=== PATIENT | female | born 1935 | race Caucasian/White ===

== ENCOUNTER 2020-09-02 15:40 | Outpatient (RCR) | payer MEDICARE, SELFPAY | END 2020-09-02 23:59 | LOC: IMMUN 15:40 | PROVIDERS: PCP Internal Medicine; Visit Provider Family Medicine | DX: Z23 Encounter for immunization (principal) | CPT/HCPCS: 0011A; 0012A; 91301 ==

== ENCOUNTER → 2023-04-30 | Outpatient (CLI) | payer MEDICARE, SELFPAY | END | disposition home or self-care (01) | LOC: LABSPEC 12:32 | PROVIDERS: PCP Internal Medicine; Referring Provider Physician Assistant; Visit Provider Physician Assistant | DX: L24.A9 Irritant contact dermatitis due friction or contact with other specified body fluids (principal) | CPT/HCPCS: 87070; 87205 ==

== ENCOUNTER 2023-05-17 08:39 | Outpatient (RCR) | payer MEDICARE, SELFPAY ==
[2023-05-17 09:14] VITALS: BP 171/85; PULSE 81; RESP 20; TEMP 36.2; BMI 24.7
--- NOTE | 2023-05-17 11:18 | PCM.WC.HP ---
History of Present Illness Date of Service: 05/17/23 Chief Complaint: Wound/skin abrasion posterior left lower extremity History of Wound: Patient is an 88-year-old female who presents to the wound care center today with complaint of nonhealing wound to the posterior superior aspect of her left lower extremity. She states she was sitting in a chair by the pang in March and shortly after noticed some redness on the back of the leg and over the next few days developed some leaking from the site. States she had been applying Neosporin however wound did feel to progress after 6 weeks. She did follow-up with PCP office on 04/30/2023 and was seen by PA who prescribed oral doxycycline 100 mg twice daily for 10 days and topical bacitracin ointment to apply daily. She states she did take the antibiotic but was out working in the sun and developed a rash secondary to photosensitivity. She states antibiotics have not improved her wound. She feels the area is continuing to worsen. She denies N/V/F/chills. Denies spreading redness. Denies new soaps and medications. Denies further complaints. [facility] Medical History (Updated 05/17/23 @ 11:[address] Yunior De Los Santos DPM) Hypertension Wound of left lower extremity Home Medications lisinopril 10 mg tablet 10 mg PO DAILY 04/30/23 [History Last Taken Unknown] Allergy/AdvReac Type Severity Reaction Status Date / Time sulfa Allergy Mild Rash Uncoded 04/30/23 10:23 Social History Smoking Status: Never smoker ROS Constitutional Constitutional: Denies anorexia, chills or fever(s) Eyes Eyes: Denies change in vision, double vision or eye pain ENT HEENT: Denies dysphagia, nasal discharge or sore throat Cardiovascular Cardiovascular: Denies chest pain, claudication or palpitations Respiratory/Chest Respiratory/Chest: Denies cough, shortness of breath at rest or wheezing Gastrointestinal Gastrointestinal: Denies abdominal pain, constipation, diarrhea, nausea or vomiting Genitourinary Genitourinary: Denies dysuria, hematuria or urinary urgency Musculoskeletal Musculoskeletal: Denies joint pain, joint stiffness or joint swelling Integumentary Integumentary: Denies lesions, pruritus or rash Neurologic Neurologic: Denies dizziness, numbness or seizures Endocrine Endocrinology: Denies cold intolerance or heat intolerance Hematologic/Lymphatic Hematologic/Lymphatic: Denies easy bleeding or easy bruising Vital Signs Vital Signs Vital Signs: 05/17/23 09:14 Temperature 97.2 F L Temperature Source Temporal Pulse Rate 81 Respiratory Rate 20 H Blood Pressure 171/85 H Blood Pressure Mean 113 Blood Pressure Source Monitor Weight Weight: 57.606 kg Body Mass Index (BMI) 24.7 Physical Exam Const alert, oriented x3 and no apparent distress General Appearance: cooperative HEENT normocephalic Eyes General Eye: normal appearance of both eyes Neck General: normal visual inspection Lymph Lymphatic: no lymphadenopathy noted and no lymphedema noted Resp normal respiratory effort Cardio regular rate and regular rhythm Extremity normal capillary refill, no joint enlargement, no calf tenderness and no pedal edema Extremity Narrative: DP and PT pulses palpable to bilateral lower extremity. Capillary fill time less than 4 seconds to all digits bilateral. Dermatological: There is a reddish purplish discolored plaque with some scaling to the posterior superior medial calf of the left lower extremity. No erythema, no purulent drainage, no serous drainage, no malodor, no palpable fluctuance/bogginess, no visible abscess formation, no lymphangitic streaking, no lymphadenopathy. Musculoskeletal: Muscle strength 5 of 5 and age-appropriate. Decreased range of motion of the ankle joint dorsiflexion with the knee extended without pain or crepitus. Decreased range of motion of the first metatarsophalangeal joint without pain or crepitus. No pain to palpation about the posterior superior calf skin lesion. Negative Raygoza sign, negative Homans' sign. Skin skin turgor normal and no jaundice Neuro oriented x3 and moves all extremities Debridement Note Debridement Note No debridement was completed: No debridement was completed today Post-Debridement Measurements and Additional Note: Post-Debridement Measurements/Treatment - Nurse 1 - General Ulcer Assessment Start: 05/17/23 09:13 Freq: Status: Active Protocol: DIXIE Activity Type Activity Date Activity User E-sign Co-sign Detail Recorded Client Recorded Date Recorded By Document 05/17/23 09:14 DL Desktop 05/17/23 09:30 DL 05/17/23 09:14 - Today's Visit Information Type of service Initial Visit Arrival Mode Ambulatory Transfer Assistance None Patient Identification Verified (Name & Yes ) Patient Requires Transmission-Based No Precautions Height and Weight Height 5 ft Weight 57.606 kg Weight in Pounds 127.0 lbs Body Mass Index (BMI) 24.7 BMI Classification Normal BSA - Franky 1.54 Vital Signs Temperature (97.8 F-99.1 F) 97.2 F L Temperature Source Temporal Pulse Rate (60-100) 81 Pulse Location Monitor Respiratory Rate (12-18) 20 H Respiratory rate source Observation Blood Pressure (90/60-120/80) 171/85 H Blood Pressure Mean 113 Source Monitor History Since Last Visit- (Skip if this is Patient's initial visit) Left Footwear Regular Shoe Right Footwear Regular Shoe Pain Scale: 0-10 Numeric Is Patient Pain Free? Yes Lower Extremity Assessment/ Foot Assessment/ Toe Nail Assessment Right -Posterior Tibial Palpable Yes -Posterior Tibial Doppler Multiphasic -Dorsalis Pedis Palpable Yes -Dorsalis Pedis Doppler Multiphasic -Extremity Color Normal -Hair Growth on Legs No -Hair Growth on Toes No -Temperature of Extremity Warm -Capillary Refill Less than 3 Seconds -Dependent Rubor No -Blanched when Elevated No -Lipodermatosclerosis No -Other Deformity No -Prior Foot Ulcer No -Charcot Joint No -Prior Amputation No -Thick No -Discolored No -Deformed No -Improper Length & Hygeine No Communication Assessment Preferred language [place] Able to Read Yes Able to Write Yes Right Hearing Abillity Normal Left Hearing Abillity Normal Visual Assistive Devices Glasses Teaching Assessment Preferences Verbal,Written, Demonstration Barriers to Learning None Readiness To Learn Good Willingness to Engage in Self Management Med Activies Readiness to Engage in Self Management Med Activities Anxiety Level Calm Cooperation Cooperative Perception Coherent Interest in Health Problem Asks Questions Education Importance Acknowledges Need Does Patient Smoke tobacco or other No substances Smoking Status Never smoker Is Patient Diabetic No Functional Assessment Recent Decline in Ability to Perform Denies Any Declines Culture/Buddhist/Repairer Veneer Sheet Cultural/Buddhist Needs that may affect No Treatment Plan Would you allow our hospital wet machine tender to No meet you for the purpose of spiritual/ emotional support? Repairer Veneer Sheet to contact place of synagogue No WC - Nurse 1 - General Ulcer Measurement Start: 05/17/23 09:13 Freq: Status: Active Protocol: Activity Type Activity Date Activity User E-sign Co-sign Detail Recorded Client Recorded Date Recorded By Document 05/17/23 09:14 DL Desktop 05/17/23 09:30 DL 05/17/23 09:14 Wound Center Nurse 1 #1 L Med LE -Current Size (cm) - Length 0.1 -Current Size (cm) - Width 0.1 -Current Size (cm) - Depth 0.1 -Total Square Cm 0.01 -Photo Taken Yes -Classification - Thickness Unclassifiable (Eschar Covered ) -Exudate Amt None Present -Wound Margin Flat & Intact -Granulation Amt None Present (0 %) -Necrosis Amt None Present (0 %) -Structure Exposed N/A -Texture (Supriya-wound Skin Appearance) Rash -Moisture (Supriya-wound Skin Appearance) Dry/Scaly -Color (Supriya-wound Skin Appearance) No Abnormality -Temperature (Supriya-wound Skin No Abnormality Appearance) (Pt Warm) -Tenderness on Palpation (Supriya-wound No Skin Appearance) -Ulcer Cleansing Soap and Water -Foul Odor after Cleansing No Assessment/Plan Assessment/Plan (1) Hypertension: CODE(S): I10 - Essential (primary) hypertension (2) Wound of left lower extremity: CODE(S): S81.802A - Unspecified open wound, left lower leg, initial encounter (3) Irritant contact dermatitis due friction or contact with other specified body fluids: CODE(S): L24.A9 - Irritant contact dermatitis due friction or contact with other specified body fluids (4) Changes in skin texture: CODE(S): R23.4 - Changes in skin texture PLAN: Plan Patient seen and evaluated There is a reddish purplish discolored plaque with some scaling to the posterior superior medial calf of the left lower extremity. No signs of infection. No drainage. No debridement performed today. Hydrogel was applied to the site and dressed with dry sterile dressing. She has previously applied Neosporin, and topical bacitracin ointment as well as taking oral doxycycline without improvement. Discussed with her that this lesion appears to be a contact dermatitis or skin irritant. Rx 2% hydrocortisone cream. She will apply topical medication twice a day. Discussed oral Benadryl for her photosensitivity rash secondary to doxycycline. Educated patient on medication and being in sun. Discussed with her not to scratch or pick at this lesion. She may apply a dry sterile dressing to cover the site to decrease friction at lesion site. Answered all of her questions to her level of satisfaction. If she fails to improve with the topical steroid consideration will be given to topical ketoconazole 2%. She will return to the wound care center in 2 weeks for reevaluation. She may call sooner with any questions or concerns.
== END 2023-06-12 23:59 | disposition home or self-care (01) ==
LOC: WC 08:39
PROVIDERS: PCP Internal Medicine; Referring Provider Physician Assistant; Visit Provider Student in an Organized Health Care Education/Training Program
DX: S81.802A Unspecified open wound, left lower leg, initial encounter (principal); I10 Essential (primary) hypertension; L24.A9 Irritant contact dermatitis due friction or contact with other specified body fluids; R23.4 Changes in skin texture
CPT/HCPCS: 99213; G0463

== ENCOUNTER → 2024-06-20 | Outpatient (CLI) | payer MEDICARE, SELFPAY ==
[2024-06-20 15:15] LABS: Absolute Lymphocyte Count 1.37 X10^3/uL (0.83-4.51); Absolute Neutrophil Count 4.6 X10^3/uL (2.0-7.7); Basophil# 0.04 X10^3/uL; Basophil% 0.6 % (0-1); Eosinophil# 0.14 X10^3/uL; Eosinophils% 2.1 % (0-5); Hematocrit 42.9 % (37-47); Hemoglobin 14.1 g/dL (12.0-15.0); Lymphocyte # 1.37 X10^3/ul (0.83-4.51); Lymphocyte % 20.4 % (19-41); Mean Corp Hgb Conc 32.9 g/dL (32-36); Mean Corpuscular Hgb 32.3 pg (27.0-32.0); Mean Corpuscular Volume 98.4 fL (81-99); Mean Platelet Vol. 9.5 fl (6.2-12.0); Monocyte# 0.52 X10^3/uL; Monocyte% 7.7 % (0-10); NRBC Flagged by Analyzer 0 % (0-5); Neutrophil # 4.64 X10^3/uL (2.7-7.7); Neutrophil % 68.9 % (47-70); Platelet Count 258 K/mm3 (150-450); RBC Distribution Width CV 12.9 % (11.6-14.6); RBC Distribution Width SD 46.3 fl (35.1-43.9); Red Blood Count 4.36 M/mm3 (4.2-5.4); White Blood Count 6.7 K/mm3 (4.4-11.0)
[2024-06-20 17:11] LABS: PTHIN 113.4 pg/mL (18.4-80.1)
[2024-06-20 20:02] LABS: ALB/GLOB Ratio 1.1 RATIO (0.9-2.4); AST(SGOT) 17 U/L (15-37); Alanine Aminotransfer ALT/SGPT 28 U/L (13-56); Albumin, Serum 3.9 g/dL (3.2-5.0); Alkaline Phosphatase 92 U/L (45-117); Anion Gap 5 (5-15); BUN 23 mg/dL (7-18); BUN/Creat Ratio 18.5 RATIO (10-20); Calcium,Total 10.6 mg/dL (8.5-10.1); Chloride 107 mmol/L (98-107); Creatinine, Serum 1.24 mg/dL (0.55-1.02); EST Glomerular Filtration Rate 43 mL/min (>60); Est Glom Filt Rate - Afr Amer 52 mL/min (>60); Free T3 2.6 pg/mL (2.18-3.98); Globulin 3.7 g/dL (2.2-4.2); Glucose 103 mg/dL (74-106); Potassium 4.1 mmol/L (3.5-5.1); Protein, Total 7.6 g/dL (6.4-8.2); Sodium Level 138 mmol/L (136-145)
[2024-06-22 08:09] LABS: Thyroid Peroxidase AB < 9 IU/mL (0-34)
== END | disposition home or self-care (01) ==
LOC: MTLAB 11:19
PROVIDERS: PCP Internal Medicine; Referring Provider Dermatology Pediatric Dermatology; Visit Provider Dermatology Pediatric Dermatology
DX: L29.89 Other pruritus (principal); L28.0 Lichen simplex chronicus
CPT/HCPCS: 36415; 80053; 83970; 84439; 84481; 85025; 86376

== ENCOUNTER 2025-03-06 13:00 | Emergency (ER) | payer MEDICARE, SELFPAY ==
[2025-03-06 13:01] VITALS: BP 175/64; PULSE 100; RESP 17; TEMP 37; O2SAT 99; BMI 25.2
--- NOTE | 2025-03-06 14:26 | CT_ITS ---
PROCEDURE: ABDOMEN/PELVIS W IV CONT ONLY 03/06/2025 REASON FOR EXAM: LLQ ABD PAIN, DIARRHEA TECHNIQUE: ABDOMEN/PELVIS W IV CONT ONLY Coronal and Sagittal reconstruction series were provided. One or more dose reduction techniques were used (e.g., Automated exposure control, adjustment of the mA and/or kV according to patient size, use of iterative reconstruction technique. RADIATION DOSE SUMMARY: DLP: 604.24 mGycm COMPARISON: None. FINDINGS: Lung bases: Clear. Liver: Diffuse hepatic steatosis, otherwise unremarkable. Gallbladder: Unremarkable, no biliary ductal dilatation. Spleen: Normal in size. Punctate calcified granuloma anteriorly. Pancreas: Unremarkable. Adrenals: Unremarkable. Kidneys: Normal in size with symmetric enhancement. No urolithiasis or hydroureteronephrosis. Bladder: Smoothly distended. No wall thickening. Reproductive Organs: Uterus appears surgically absent. Unremarkable adnexae. Bowel: Small hiatal hernia. Stomach and small bowel otherwise unremarkable. No evidence of obstruction. Normal appendix. Mild distal colonic diverticulosis without evidence for active diverticulitis. Fluid within the colon likely indicates a diarrheal illness. Moderate stool burden distending the rectal vault with mild circumferential wall thickening and perirectal fat infiltration, compatible with constipation with fecal impaction and stercoral proctitis. Lymph nodes: No suspicious lymph node enlargement. Vasculature: Abdominal aorta and IVC are normal in course and caliber. Mild atherosclerotic disease. Peritoneum / Retroperitoneum: No ascites or free air. Bones: Mild degenerative changes of the lower lumbosacral spine. CT/Abdomen/Pelvis W IV Cont ONLY IMPRESSION: 1. Moderate fecal load distending the rectal vault with stercoral proctitis. 2. Fluid throughout the colon proximally indicating diarrhea. 3. Mild diverticulosis without evidence for active diverticulitis. Reading Location: [id number]
--- NOTE | 2025-03-06 14:26 | EX.ED.DYSGE1 ---
HPI History of Present Illness Chief Complaint: Diarrhea Narrative Narrative: Patient is a 89-year-old female past medical history of hypertension who presents to the emergency department chief complaint of diarrhea and painful urination. Patient states that yesterday she felt that she was constipated took MiraLAX and noted that ever since then she has had many bowel movements and noted that these are brown in nature denies any black or tarry stools. Patient also states that her urine is not normal for herself. She states that since she has not been getting better she came here for further evaluation management. Patient denies any sick contacts. Patient denies any falls or injuries to her back denies any back pain denies any fevers PFSH PFS Medical History (Updated 03/06/25 @ 16:[address] Kt Patel, DO) Wound of left lower extremity Hypertension Home Medications ?Medication ?Instructions ?Recorded ?Last Taken ?Type lisinopril 10 mg tablet 10 mg PO DAILY 04/30/23 Unknown History Allergy/AdvReac Type Severity Reaction Status Date / Time sulfa Allergy Mild Rash Uncoded 04/30/23 10:23 Surgical History (Updated 03/06/25 @ 14:51 by Rosa M Zamudio) H/O: hysterectomy Social History (Updated 03/06/25 @ 14:51 by Rosa M Zamudio) household members: none Smoking Status: Never smoker ROS ROS ED ROS Narrative Constitutional: Denies any fevers, chills, headaches Eyes: Denies double vision blurry vision changes vision Cardiovascular: Denies chest pain Respiratory: Denies shortness of breath Abdomen: Complains of nausea, abdominal pain and diarrhea denies vomiting : Patient complains of urinary symptoms as her urine is not normal per the patient denies any blood Neurological: Denies any numbness, weeks, tingling Musculoskeletal: Denies back pain Skin: Denies any rashes or lesions EXAM Physical Exam Narrative Exam Narrative: General: Patient was lying in bed rest comfortably did not appear to be acute distress Head: Atraumatic, normocephalic Eyes: PERRL bilaterally, EOMI blood, no conjunctival injection noted Neck: Soft, supple, trachea midline Cardiovascular: Regular rate and rhythm no murmurs gallops rubs noted Respiratory: Clear to auscultation bilaterally no rales rhonchi or wheezes noted Abdomen: Soft, nondistended, tenderness palpation the left lower quadrant no rebound or guarding on exam Extremities: +4/5 strength noted in the bilateral upper and lower extremities, radial pulses +2/4 in the bladder extremities, no pedal edema exam Neurological: Patient follow commands knew that she was at [facility] the year is 2024 Skin: Warm, dry, tact no rashes or lesions noted Const Vital Signs: 03/06/25 13:01 03/06/25 15:01 Temperature 98.6 F Temperature Source Oral Pulse Rate 100 Respiratory Rate 17 Blood Pressure 175/64 H 162/66 H Blood Pressure Mean 101 98 Pulse Ox 99 97 Oxygen Delivery Method Room Air Room Air MDM MDM MDM Narrative Medical decision making narrative: Patient is a 89-year-old female who presented to the emergency department with a chief complaint of diarrhea and concern for abnormal urine. On the differential diagnosis includes but not limited to diverticulitis, complicated diverticulitis with fistula to her bladder, UTI, bowel obstruction, constipation. Once workup is obtained reviewed she will be reevaluated. Patient CBC reviewed with significant leukocytosis of 14,000, hemoglobin 13.1, platelet count 252. Patient sodium was noted be 130, potassium normal 4.7, creatinine normal at 1.19. Patient's AST and ALT are 2920 respectively. Patient lipase normal at 17, urinalysis pending. Patient CT ab and pelvis IV contrast is pending as well. Patient had bladder scan performed here in the emergency department and had over a liter in her bladder she was straight cathed per nursing. This was sent for culture/urinalysis. Patient will have spontaneous voiding trial here in the emergency department. After straight cath patient states that she was feeling much better. Patients case signed out to on coming provider to follow up on CT abdomen and pelvis as well as UA and spontaneous voiding trial. See addendum for further details. Lab Data Labs: Laboratory Results - last 24 hr 03/06/25 14:49 WBC 14.8 H RBC 4.06 L Hgb 13.1 Hct 38.9 MCV 95.8 MCH 32.3 H MCHC 33.7 RDW Std Deviation 46.0 H RDW Coeff of Janay 12.9 Plt Count 252 MPV 9.5 Immature Gran % (Auto) 0.300 Neut % (Auto) 86.0 H Lymph % (Auto) 7.5 L Nelson % (Auto) 5.9 Eos % (Auto) 0.2 Baso % (Auto) 0.1 Absolute Neuts (auto) 12.7 H Absolute Lymphs (auto) 1.11 Nucleated RBC % 0 Sodium 130 L Potassium 4.7 Chloride 97 L Carbon Dioxide 21.4 Anion Gap 12 BUN 16 Creatinine 1.19 Estim Creat Clear Calc 25.71 L Est GFR (MDRD) Non-Af 44 L BUN/Creatinine Ratio 13.0 Glucose 149 H Calcium 10.0 Total Bilirubin 0.65 AST 29 ALT 20 Alkaline Phosphatase 85 Total Protein 6.9 Albumin 3.9 Globulin 3.0 Albumin/Globulin Ratio 1.3 Lipase 17 Discharge Plan Triage Chief Complaint: Diarrhea ED Provider: Kt Patel Dx/Rx/DC Orders Clinical Impression: Abdominal pain, Diarrhea, Acute urinary retention Prescriptions: No Action lisinopril 10 mg tablet 10 mg PO DAILY Primary Care Provider: Misty Colindres NP Referrals: Misty Colindres NP, [employer]ING [employer] OPERATOR-[employer] [Primary Care Provider] - Activity Restrictions/Additional Instructions: Follow-up with your doctor in outpatient setting. Return with worsening symptoms or any concerns. Print Language: [place]
[2025-03-06] MEDS: 0.9% Normal Saline (1000mL) 1,000 ML 999 ML IV (14:48)
[2025-03-06 14:53] LABS: Hematocrit 38.9 % (37-47); Hemoglobin 13.1 g/dL (12.0-15.0); Immature Granulocytes Count 0.050 X10^3/uL (0.0-0.0); Mean Corp Hgb Conc 33.7 g/dL (32-36); Mean Corpuscular Volume 95.8 fL (81-99); Mean Platelet Vol. 9.5 fl (6.2-12.0); NRBC Flagged by Analyzer 0 % (0-5); Platelet Count 252 K/mm3 (150-450); RBC Distribution Width CV 12.9 % (11.6-14.6); RBC Distribution Width SD 46.0 fl (35.1-43.9); Red Blood Count 4.06 M/mm3 (4.2-5.4); White Blood Count 14.8 K/mm3 (4.4-11.0)
[2025-03-06 15:01] VITALS: BP 162/66; O2SAT 97
[2025-03-06 15:48] LABS: Mucous, Urine 0 SEEN /hpf (<or=2+); Squamous Epithelial Cells - UA 0 SEEN /hpf (5-10)
[2025-03-06 15:59] LABS: Lipase 17 U/L (13-75)
[2025-03-06 16:00] LABS: AST(SGOT) 29 U/L (<=31); Alanine Aminotransfer ALT/SGPT 20 U/L (<=34); Albumin, Serum 3.9 g/dL (3.4-4.8); Alkaline Phosphatase 85 U/L (35-104); Anion Gap 12 (5-15); BUN 16 mg/dL (4-19); BUN/Creat Ratio 13.0 RATIO (10-20); Calcium,Total 10.0 mg/dL (7.6-11.0); Carbon Dioxide 21.4 mmol/L (21.0-32.0); Chloride 97 mmol/L (98-108); Estimated Creatinine Clearance 25.71 ml/min (50-250); Globulin 3.0 g/dL (2.2-4.2); Glucose 149 mg/dL (70-99); Potassium 4.7 mmol/L (3.3-5.1)
[2025-03-06 17:00] VITALS: BP 165/57; PULSE 82; O2SAT 98
[2025-03-06 17:08] LABS: Color, Urine Yellow (Yellow); Glucose, Dipstick Normal (Normal); Ketone-Dipstick Negative (Negative); Leukocyte Esterase-Dipstick Negative /ul (Negative); Nitrite-Dipstick Negative (Negative); Occult Blood-Urine Negative /ul (Negative); Protein-Dipstick 15 mg/dl (Negative); Specific Gravity, Urine 1.010 (1.002-1.030); Urine Bilirubin Dipstick Negative (Negative)
[2025-03-06 17:43] LABS: Red Blood Cells-Urine 0-5 SEEN /hpf (0-5)
[2025-03-06 19:00] VITALS: BP 136/51; PULSE 88; O2SAT 100
[2025-03-06 20:00] VITALS: BP 123/47; PULSE 77; RESP 18; O2SAT 98
[2025-03-06 21:35] VITALS: BP 148/80; PULSE 85; RESP 16; TEMP 36.6; O2SAT 96
== END 2025-03-06 21:46 | disposition home or self-care (01) ==
PROVIDERS: Emergency Provider Emergency Medicine; PCP Internal Medicine; Visit Provider Emergency Medicine
DX: R19.7 Diarrhea, unspecified (principal); I10 Essential (primary) hypertension; R33.9 Retention of urine, unspecified; R10.9 Unspecified abdominal pain; R11.0 Nausea; Z90.710 Acquired absence of both cervix and uterus
CPT/HCPCS: 74177; 80053; 81001; 83690; 85025; 99284; Q9967; A4216; J2405